=== PATIENT | male | born 1990 | race Caucasian/White ===

== ENCOUNTER 2024-11-15 10:24 | Emergency (ER) | payer OTHER, SELFPAY ==
--- NOTE | 2024-11-15 10:36 | EDRN ---
Called x2, 5 minutes apart, no answer from [facility].
[2024-11-15 10:46] VITALS: BP 143/91
[2024-11-15] MEDS: NSS 1000 IV (11:02)
[2024-11-15] MEDS: TORADOL 30 MG IV (11:03)
[2024-11-15] MEDS: ZOFRAN 4 MG IV (11:03)
[2024-11-15] MEDS: DILAUDID 1 MG IV (11:04)
[2024-11-15 11:08] VITALS: BP 134/72; BMI 27.6
--- NOTE | 2024-11-15 11:12 | ED.GENMED ---
History of Present Illness
General
Chief Complaint: Flank Pain
Source: patient
Exam Limitations: none
Time Seen by Provider: 11/15/24 10:48
Nursing documentation reviewed up to this point in time: agreed with
History of Present Illness
History of Present Illness:
PT IS A 34 YO M
h/o kidney stone
here with R low back pain radiating to R scrotum 1 hour ago while at work
severe pain, nausea/vomiting, sweatiness
pain is into his R testicle but it is not tender, no lumps
pt had previous stone years ago
this reminds him of that
he says about 3 days ago he had brief pain in th R back but it resolved on its own an dwas mild
no fever/chills
+ urinary urgency/frequency
no dysuria
Past History
Past History
ED Past Medical History: Other (kidney stone)
Social History
Tobacco: Non-smoker
Alcohol: None
Living: with family
Review of Systems
Review of Systems
Allergies reviewed?: Yes
All Other Systems: Not applicable
Phy Exam
Physical Exam
Physical Exam:
GENERAL: Alert, uncomfortable
Neck: supple
CARDIAC: Regular rate and rhythm .
LUNGS: Clear breath sounds bilaterally, no acute respiratory distress, no wheezes/rales/rhonchi
ABDOMEN: Soft, normal bowel sounds, nondistended, mild RLQ tenderness, no guarding, no rebound, neg bright's
: normal inspection of region
nontender testicles b/l
no rashes
no masses
NEUROLOGICAL: Alert and oriented, no focal neuro deficits
SKIN: Warm and, skin intact. diaphoretic
PSYCH: Normal and appropriate interaction.
Course
Orders/Labs/Results
Orders:
Orders
11/15/24 10:53
0.9% Sodium Chloride 1000 ml [Nss] 1,000 ml IV BOLUS
HYDROmorphone [Dilaudid] 1 mg IV NOW STA
Ketorolac [Toradol] 30 mg IV NOW STA
Ondansetron Injectable [Zofran] 4 mg IV NOW STA
11/15/24 10:54
CT Abd/pel Without Iv Or Oral Urgent
Comment:
Reason For Exam: R back pain to R scrotum, suspect stone
11/15/24 11:07
Complete Blood Count/With Diff Urgent
Comprehensive Metabolic Panel Urgent
11/15/24 12:46
Urinalysis Reflex To Culture Urgent
Date Specimen was Collected: 11/15/24
Time Specimen was Collected: 12:45
Urine Microscopic Reflex Cult Urgent
Urine Culture Urgent
DAMON Source: U
Specimen Description:
Date Specimen was Collected: 11/15/24
Time Specimen was Collected: 12:45
11/15/24 12:54
Tamsulosin [Flomax] 0.4 mg PO NOW STA
11/15/24 13:19
CefTRIAXone [Rocephin] 1,000 mg IV NOW STA
Abnormal Lab Results
11/15/24 11/15/24
11:07 12:46
MCH 31.3 H pg
(27.0-31.0)
Abs Immat Gran (auto) 0.1 H 10^3/uL
(0-0.05)
Absolute Lymphs (auto) 4.2 H 10^3/uL
(1.2-3.4)
Absolute Monos (auto) 0.8 H 10^3/uL
(0.1-0.6)
Immature Gran % 0.6 H %
(0-0.5)
Glucose 125 H mg/dl
(70-99)
Calcium 10.3 H mg/dl
(8.4-10.2)
Urine Ketones 3+ A
(Negative)
Ur Occult Blood Reflex 4+ A
(Negative)
Leukocyte Esterase Rfl 1+ A
(Negative)
Urine RBC 50-60 A /HPF
(0-2)
Urine Bacteria (Reflex) Few A
(Negative)
Urine Albumin (Reflex) 2+ A
(Neg - Trace)
11/15/24 11:07
11/15/24 11:07
Vital Signs
Initial and Last Documented VS:
Initial Vital Signs
Pulse Resp Pulse Ox
60 24 100
11/15/24 10:43 11/15/24 10:43 11/15/24 10:43
Last Documented Vital Signs
Temp Pulse Resp BP Pulse Ox
36.7 C 54 18 134/72 100
11/15/24 13:56 11/15/24 11:08 11/15/24 11:08 11/15/24 11:08 11/15/24 10:43
MDM/Problems Addressed
Differential Diagnosis Includes:
r4lmjth stone, testicular torsion
MDM/Problems Addressed:
34 y/o M
h/o kidney stone 2018
here with R back pain to R scrotal pain
no dysuria
no fever
very uncomfortable on arrival, diaphoretic, pale
normal testicular exam no masses nontender
suspected stone
cr normal
wbc normal
ua bloood and some bacteria but nnot nitrite
ct shows 3.7 mm R UVJ stone; hydro
pt felt much better after ivf, pain and nauesa meds
he doesn't have dysuria and doubt th eua is positive but will cover with 1 dose rocpehin
strainer
flomax
pain control
f/u urology
*Critical Care Note
Total Time (30-74mins, 75-104mins- exclusive of procedures): Not Applicable
ED Attending Note
-
Portions of this chart may have been created with voice recognition software.� Occasional wrong word or��sound alike� substitutions may have occurred due to the inherent limitations of voice recognition software.
Discharge Plan
Departure
Patient Disposition: Home (Routine Discharge)
Date of Disposition: 11/15/24
Time of Disposition: 13:37
Patient with high blood pressure during this ER visit?: No
Condition: Fair
Covid-19: Not Applicable
Discharge Problem:
Ureterolithiasis
Instructions: Kidney Stones (DC)
Prescriptions:
New
tamsulosin [Flomax] 0.4 mg capsule
0.4 mg PO DAILY Qty: 7 0RF
oxycodone 5 mg tablet
5 mg PO BID PRN (Reason: Pain) Qty: 3 0RF
ondansetron 4 mg tablet,disintegrating
4 mg PO TIDPRN PRN (Reason: nausea/vomiting) Qty: 5 0RF
No Action
No Meds [No Current Medications]
0
Referrals:
Meme Tejada MD [Family Provider] -
Siva Rodriguez MD [Active] - Follow up in 1 week
Activity Restrictions/Additional Instructions:
YOU HAVE A 3.7 MM STONE IN THE RIGHT URETER NEAR YOUR BLADDER
STAY HYDRATED
TAKE FLOMAX 0.4 MG ONCE A DAY UNTIL YOU PASS THE STONE
URINATE THROUGH THE STRAINER EACH TIME YOU PEE
TAKE TYLENOL 2 EXTRA STRENGTH TABS 3 TIMES A DAY FOR PAIN
YOU CAN ALSO TRY MOTRIN 800 MG EVERY 8 HOURS WITH FOOD 2-3 TIMES A DAY NEEDED
IF PAIN IS SEVERE YOU CAN TRY OXYCODONE 5 MG EVERY 6 HOURS NEEDED, THIS IS A NARCOTIC AND YOU CANNOT DRIVE OR DRINK ON THIS MEDICATION.
RETURN FOR: SEVERE PAIN, VOMITING, FEVER, NOT URINATING OR ANY CONCERNS.
OTHERWISE FOLLOW UP WITH YOUR UROLOGIST
Interventions
Interventions:
*Risk Screen - Suicide Last Done: 11/15/24 11:15
*General Assessment Last Done: 11/15/24 11:15
*Neglect/Abuse Screening Last Done: 11/15/24 11:15
*ED- Fall Risk Assessment Last Done: 11/15/24 11:15
*ED COVID-19 Vaccine History Last Done: 11/15/24 11:15
BW-Uwqveb-Lvejsiguuc Assessment Last Done: 11/15/24 11:15
ED-Male Genitourinary Assessment Last Done: 11/15/24 11:15
Discharge Date and Time
Print Language: SUDANESE
[2024-11-15 11:20] LABS: % Basophils 0.7 % (0-2); % Eosinophils 2.3 % (0-6); % Immature Granulocytes 0.6 % (0-0.5); % Lymphocytes 39.1 % (20.5-51.1); % Monocytes 7.1 % (1.7-9.3); % Neutrophils 50.2 % (42.2-75.2); Absolute Basophils 0.1 10^3/uL (0-0.2); Absolute Eosinophils 0.3 10^3/uL (0-0.7); Absolute Immature Granulocytes 0.1 10^3/uL (0-0.05); Absolute Lymphocytes 4.2 10^3/uL (1.2-3.4); Absolute Monocytes 0.8 10^3/uL (0.1-0.6); Absolute Neutrophils 5.4 10^3/uL (1.4-6.5); Hematocrit 46.4 % (39.0-52.0); Hemoglobin 16.5 g/dL (13.0-18.0); Mean Corp Hgb Conc. 35.6 g/dL (33.0-37.0); Mean Corpuscular Hgb 31.3 pg (27.0-31.0); Mean Corpuscular Volume 87.9 fL (80.0-94.0); Mean Platelet Volume 10.2 fL (7.4-10.4); Nucleated Red Blood Cells % 0 % (-); Platelet Count 211 10^3/uL (130-400); Red Blood Cell Count 5.28 10^6/uL (4.70-6.10); Red Cell Dist. Width 12.1 % (11.5-14.5); White Blood Cell Count 10.7 10^3/uL (4.8-10.8)
[2024-11-15 11:45] LABS: ALT (SGPT) 26 U/L (0-50); AST (SGOT) 23 U/L (17-59); Alkaline Phosphatase 73 U/L (38-126); Blood Urea Nitrogen 14 mg/dl (9-20); Calcium 10.3 mg/dl (8.4-10.2); Carbon Dioxide 22 mmol/L (22-30); Chloride 103 mmol/L (98-107); Estimated Creatinine Clearance > 125 ml/min; Glucose 125 mg/dl (70-99); Potassium 4.1 mmol/L (3.5-5.1); Sodium 138 mmol/L (135-145); Total Bilirubin 0.7 mg/dl (0.2-1.3); Total Protein 7.7 g/dl (6.3-8.2); eGFR > 60.00
[2024-11-15 12:58] LABS: Urine Albumin 2+ (Neg - Trace); Urine Bilirubin Negative (Negative); Urine Character Clear (Clear); Urine Color Yellow; Urine Glucose Negative (Negative); Urine Ketone 3+ (Negative); Urine Leukocyte 1+ (Negative); Urine Nitrite Negative (Negative); Urine Occult Blood 4+ (Negative); Urine Specific Gravity 1.025 (<1.030); Urine Urobilinogen Negative (Neg - 1+)
[2024-11-15 13:13] LABS: Urine Mucus Moderate; Urine Squamous Cell 0-2 /LPF (Few)
[2024-11-15 13:14] LABS: Urine Bacteria Few (Negative); Urine Red Blood Cell 50-60 /HPF (0-2)
[2024-11-15] MEDS: FLOMAX 0.4 MG PO (13:50)
[2024-11-15] MEDS: ROCEPHIN 1000 MG IV (13:50)
== END 2024-11-15 14:43 | disposition home or self-care (01) ==
LOC: EMR 10:24
PROVIDERS: Physician Assistant; EMERGENCY PHYSICIAN Emergency Medicine; FAMILY PHYSICIAN Obstetrics & Gynecology Gynecology
DX: N13.2 Hydronephrosis with renal and ureteral calculous obstruction (principal); M54.50 Low back pain, unspecified
CPT/HCPCS: 96374; 96375; 99284; 74176; 80053; 81003; 81015; 85025; 87086

== ENCOUNTER 2025-07-10 06:28 | Day surgery (SDC) | payer OTHER, SELFPAY | END 2025-07-10 14:33 | disposition home or self-care (01) | LOC: GI 06:28 | PROVIDERS: ATTENDING PHYSICIAN Student in an Organized Health Care Education/Training Program | DX: K63.5 Polyp of colon (principal); R19.4 Change in bowel habit; R10.84 Generalized abdominal pain; D12.8 Benign neoplasm of rectum; K31.7 Polyp of stomach and duodenum | CPT/HCPCS: 45385; 45380; 43239; 88305; 88342 ==